=== PATIENT | male | born 1995 ===

== ENCOUNTER 2022-06-09 05:43 | Emergency (ER) | payer OTHER ==
[2022-06-09 05:43] LABS: ANION GAP 7.7 mEq/L (7-13); CHLORIDE,CL 105 mmol/L (98-107); SODIUM,NA 142 mmol/L (136-145)
[~2022-06-09 05:43] MED LIST: Sodium Chloride 0.9% 1,000 ML IV ONE
[2022-06-09] MEDS ORDERED: 50% Dextrose in Water 50 ML Syringe IVPUSH ONE (05:57)
[2022-06-09] MEDS ORDERED: 50% Dextrose in Water 50 ML Syringe ONE (05:58)
[2022-06-09 06:03] LABS: ESTIMATED GFR 122 mL/min (>=60)
== END 2022-06-09 07:17 | disposition home or self-care (01) ==
LOC: DL.ED 05:43
DX: E10.649 Type 1 diabetes mellitus with hypoglycemia without coma (principal)
CPT/HCPCS: 36415; 80053; 80307; 82947; 83735; 85025; 96361; 96374; 99285; J7030; 99283